=== PATIENT | female | born 1990 | race Caucasian/White ===

== ENCOUNTER 2019-01-17 09:52 | Inpatient (IN) | payer OTHER ==
--- NOTE | 2019-01-16 20:37 | PDGENHP ---
History and Physical - Chief Complaint LEFT HIP PAIN - History of Present Illness 1. ~~Bilateral Femoral excessive~Antetorsion/Valgus 2.~~~Right~Femoroacetabular impingement (AMIRAH) Cam type,~with~resultant labral tear 3. ~~Left Ischiofemoral impingement~ 4. 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 ~[employer], [employer], and yoga. Daysi's~bilateral~hip pain~started Fall 2016, with~no~recalled trauma or injury, and with~no~previous complaints.~Randdoes not have~a known history of hip dysplasia. Presentation today is of~anterior~Right~hip pain and~Left posterior hip pain. ~ The hip~does not~wake her~at night and~does~click and catch on~her. Sitting~can be uncomfortable~for her.~Randdoes~report suffering from lower back pain episodes. Randhas~participated in physical therapy (over a year)~and has~tried other conservative measures including ~Bilateral iliopsoas~injection (100% relief)~and ~left quadratus femoris injection with USG~which gave her 100% relief, ~dry needling and massage therapy.~Diana~has not~received sufficient symptomatic improvement. Randhas~utilized medication for pain management, including NSAID and OTC acetaminophen.~Randhas used medication since the pain began. Randunderstands that~diana~has a hip and pelvis problem which should be researched and wishes to get a better understanding of~her~hip status, followed by an establishment of a treatment strategy, hoping~diana~would be able to get back to~her~well being active life. History: Past medical history:~~ None which is relevant~ Relevant familial history:~Father with OA in hips Past surgical history:~ None Randdenies problematic issues with general anesthesia in the past. I have reviewed, verified and agree with the past medical, surgical, family and social history. Current Medications:~has a current medication list which includes the following prescription(s): albuterol hfa, ibuprofen, magnesium, and turmeric root extract. ALLERGIES:~is allergic to no known drug allergies. Objective: Physical Examination: Randis 5~feet~5~inches tall and weighs~135~Lbs. Randis AAO x3; she~is well- nourished, in NAD. Skin is warm and dry. ~Breathing is non-labored. ~CV with RRR by pulse. Abdomen is soft, NTND. Currently,~she~walks with a~normal~gait.~(VALGUS) Trendelenburg sign is~negative~and proprioception~is normal,~both~sides. She~presents~with mild~signs of joint laxity.~Beightons Score:~2 (knees) Lower spine examination is~negative~for sciatic or femoral nerve irritation with negative~SLR &~femoral stretch tests. Range of motion of the spine is normal~for flexion, extension, and rotations,~with no~associated pain. Strength, Sensation and pulses are~normal -~bilaterally Ankles and knees exams are~normal~and~no~mal-alignment is evident.~ She~has~no leg length discrepancy. Thigh circumference is~symmetric~with no evidence for muscle atrophy~on both~ sides. Hip ROM (degrees): FL ER At 90~hip FL IR At 90~hip FL AB AD EX IR Neutral hip ER Neutral hip R 105 40 50 40 5 10 65 20 L 100 45 50 45 5 10 75 5 Specific hip and pelvis tests: Impingement Test FEROZ Roll Add. Longus R +++ +++ Negative Negative L +++ +++ Negative Negative Glut. Med ITB Posterior Imp R Negative 4+/5 strength Negative 4+/5 strength Negative L Negative 4+/5 strength Negative 4+/5 strength Negative Squeeze test measured~weak Bony Symphysis pubis is~pain free~to touch while concentric activity of the rectus abdominis, does not~produce pain at its insertion. Ilio Psos specific tests are~negative for pain during cycling for~both hips~and no snap. HF has~pain weakness~the left hip. Greater trochanteric burse is~pain free~on both hips. Piriformis tests: FAIR is~negative,~with no~local signs of neuritis related to sciatic nerve. (LEFT PROFOUNDLY WEAK~Gluts) SIJs examination is~normal~with~normal~FEROZ in relation and local tenderness. Hamstrings tests are~negative~functional contraction and negative~tendinopathy both hips. Imaging: Radiology studies which I~have personally reviewed, analyzed and measured are below: XR: AP of the hip and pelvis: Performed in a~good~technique Coccyx to pubic symphysis distance~2.4~cm. Standing~ [place]~Lines are preserved. Minimal~Pathological signs are seen in the Symphysis Pubis.~ Minimal~Pathological signs are seen at the Ischial~tuberosity. ~ Specific measurements show: NSA~ LCE Sourcil~Angle Sharp's angle Lat. Cam Lat. Pincer C.Over~sign Head~Coverage % ATDmm R 149 40 4 42 + - 12-12:30 N N L 149 34 6 41 + - 12-12:30 N N Pos. wall sign ISS NAD ~~Dysplasia Comments R Negative Negative 20.3~mm Negative L Negative Negative 14.7~mm Negative Sclerosis Sup. Lat. OA Cysts Joint Space-WBZ Joint Space-Medial R Negative Negative Negative 3.7~mm 3.2~mm L Negative Negative Negative 3.9~mm 3.4~mm CT / 3D:~ Right hip: Lateral center edge angle: 42 degrees Anterior center edge angle: 64 degrees Equatorial acetabular version angle: 25 degrees Anteverted. Cranial acetabular version angle: 1 degrees Anteverted. Femoral neck shaft angle: 149 degrees Femoral neck version angle: 34 degrees retroverted Femoral shaft torsion angle: 49 degrees~(medial/internal rotation) Left hip: Lateral center edge angle: 31 degrees Anterior center edge angle: 59 degrees Equatorial acetabular version angle: 21 degrees Anteverted. Cranial acetabular version angle: 2 degrees Anteverted. Femoral neck shaft angle: 149 degrees Femoral neck version angle: 44 degrees retroverted Femoral shaft torsion angle: 54 degrees~(medial/internal rotation) 3T Bilateral hip~MRI shows:~good cartilage quality, labral tear, no bone edema or cystic changes Impression and plan: ~ Daysi~is a~28 y.o.~active female~suffering from symptomatic~Bilateral~hip pain due to Femoral antetorsion and~Femoroacetabular impingement (AMIRAH) Cam type,~with ~resultant labral tear causing significant disability to~her~and altering~her~ sport and life activities. Physical examination, imaging, and~her~story correspond with the diagnosis mentioned above. I explained that femoral malrotation is a condition wherein the hip joint has excessive play~and instability due to the orientation of the femur bone or where the femur bone is rotated towards the back of the hip socket resulting in additional impingement pathology. This pathology ranges in severity with treatment options being specific to the nature of the problem. Left untreated, the ante-torsion related instability or the retro-torsion related impingement in the hip joint can cause progressive tearing of the labrum and deterioration of the surface cartilage, ultimately resulting in progressive osteoarthritis of the hip. ~ I explained that femoroacetabular impingement (AMIRAH - Cam type) arises due to a bony or soft tissue conflict between the femur (ball) and acetabulum (socket) caused by an abnormality in the shape of the femoral head and neck. Over time, repetitive impingement can result in damage to the labrum and adjacent surface cartilage within the socket, ultimately giving rise to progressive osteoarthritis of the hip. ~ I explained that although a labral tear can be a source of pain, it is rarely the root of the problem and typically occurs secondary to an underlying abnormality in the shape and mechanics of the hip joint. ~ I reviewed conservative treatment options for Femoral malrotation and AMIRAH including activity modification to avoid positions of impingement or instability , physical therapy, non-steroidal anti-inflammatory medications, and various injections (corticosteroid and PRP) aimed at reducing inflammation in the hip joint or/and preventing dynamic instability and impingement. PRP injections may promote healing and reduce symptoms in certain cases but it will not repair chronically damaged tissue. Although these measures may help to buy time~and reduce current level of symptoms, they are not a definitive solution to the problem given the underlying abnormality in the shape of the hip joint. ~ Patients who have failed conservative management and continue to experience symptoms are candidates for definitive surgical treatment, which may consist of hip arthroscopy alone or in combination with more invasive bony realignment procedures of the femur called derotational femoral osteotomy (DFO), where the femur bone is rotated to the normal anatomical range. ~ Hip arthroscopy typically includes treating the labrum with either repair or reconstruction of the torn labrum; as well as addressing the underlying abnormalities by restoring the normal shape to the hip joint. If the cartilage is damaged a Microfracture surgical procedure may also be necessary to help stimulate the growth of fibrocartilage. If a patient requires a labral reconstruction or a microfracture, the initial rehabilitation from the surgery may take longer, but the longterm results are typically favorable. I reviewed the technical aspects of derotational femoral osteotomy (DFO) including risks, benefits, and expected course of recovery.~Randunderstands that DFO is a minimally invasive inpatient procedure carried out through a small incision on the outer aspects of the hip joint. The femur bone is cut, realigned, and stabilized with a frank. Risks, potential complications, side effects and recovery from surgical procedure were discussed in length.~Daysi~ understands that he/she will undergo hip arthroscopy 1 week prior to the DFO to address damage inside the hip joint to include labral repair and correction of Hip impingement. Daysi~will review the info presented. She will schedule a hip scope with dr Chin and a DFO with us a week later.~ Randwill contact us if she~wishes to pursue further treatment in the future. Randis happy with this plan. I have also supplied~her~with handouts, outlining the expected surgical treatment and rehab involved. I wish~Randall the best, ~~ LORRIE Weller History Information - Allergies/Home Medication List Allergies/Adverse Reactions: sulfite Allergy (Verified 01/06/19 14:17) GI/DIARRHEA Home Medications: Acetaminophen [Tylenol 325mg (*)] 325 mg PO Q6 PRN 01/02/19 [Last Taken Unknown] Albuterol [Proventil Inhaler HFA (*)] 1 - 2 puffs IH Q4H PRN 01/02/19 [Last Taken Unknown] Cetirizine [ZyrTEC 10 mg (*)] 10 mg PO DAILY PRN 01/02/19 [Last Taken Unknown] Herbals/Supplements -Info Only 1 ea PO DAILY 01/02/19 [Last Taken Unknown] Ibuprofen [Motrin (*)] 200 mg PO Q6HRS PRN 01/02/19 [Last Taken Unknown] [place]-3 Fatty Acids [Fish Oil 1000 mg (*)] 1,000 mg PO DAILY 01/02/19 [Last Taken Unknown] I have personally reviewed and updated: medical history - Social History Smoking Status: Never smoked Review of Systems Review of Systems: Physical Exam Physical Exam:
[2019-01-17] MEDS ORDERED: PREGABALIN 150 MG CAP PO ONE (12:17)
[2019-01-17] MEDS ORDERED: TRANEXAMIC ACID 1,000 MG in NS 100 ML IV ONE (12:17)
[2019-01-17] MEDS ORDERED: SCOPOLAMINE HYDROBROMIDE 1 MG/3 DAYS PATCH TD ONE (12:17)
[2019-01-17] MEDS ORDERED: ACETAMINOPHEN 500 MG TAB PO ONE (12:17)
[2019-01-17] MEDS ORDERED: ceFAZolin 2 GM/DEXTROSE 100 ML IV ONE (12:17)
[2019-01-17] MEDS ORDERED: LR 1,000 ML IV ONE (12:20)
[2019-01-17 13:06] LABS: PLATELET COUNT 311 10^3/uL (150-400)
[2019-01-17] MEDS ORDERED: BUPIVACAINE/EPI 0.25% 30 ML SDV ONE (13:27)
[2019-01-17] MEDS ORDERED: MIDAZOLAM 2 MG/2 ML VIAL IVP ONE (13:47)
--- NOTE | 2019-01-17 13:47 | PDANEPAE ---
ANE History of Present Illness L DFO ANE Past Medical History - Cardiovascular History Hx Hypertension: No Hx Arrhythmias: No Hx Chest Pain: No Hx Coronary Artery / Peripheral Vascular Disease: No Hx CHF / Valvular Disease: No Hx Palpitations: No - Pulmonary History Hx COPD: No Hx Asthma/Reactive Airway Disease: Yes Hx Recent Upper Respiratory Infection: No Hx Oxygen in Use at Home: No Hx Sleep Apnea: No Sleep Apnea Screening Result - Last Documented: Negative Pulmonary History Comment: EXERCISE INDUCED ASTHMA - Neurologic History Hx Cerebrovascular Accident: No Hx Seizures: No Hx Dementia: No - Endocrine History Hx Diabetes: No - Renal History Hx Renal Disorders: No - Liver History Hx Hepatic Disorders: No - Neurological & Psychiatric Hx Hx Neurological and Psychiatric Disorders: No - Cancer History Hx Cancer: No - Congenital Disorder History Hx Congenital Disorders: Yes 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 - GI History Hx Gastrointestinal Disorders: No - Other Health History Other Health History: EXCEZMA FACIAL - Chronic Pain History Chronic Pain: Yes (SHAYNE HIPS) - Surgical History Prior Surgeries: LT HIP SCOPE IN [place] 01/05/19 ANE Review of Systems Review of systems is: negative Review of Systems: - Exercise capacity METS (RN): 5 METS ANE Patient History - Allergies Allergies/Adverse Reactions: sulfite Allergy (Verified 01/06/19 14:17) GI/DIARRHEA - Home Medications Home medications: home medication list seen and reviewed Home Medications: Acetaminophen [Tylenol 325mg (*)] 325 mg PO Q6 PRN 01/02/19 [Last Taken 01/14/19 ] Albuterol [Proventil Inhaler HFA (*)] 1 - 2 puffs IH Q4H PRN 01/02/19 [Last Taken 07/01/18] Cetirizine [ZyrTEC 10 mg (*)] 10 mg PO DAILY PRN 01/02/19 [Last Taken 01/10/19] Herbals/Supplements -Info Only 1 ea PO DAILY 01/02/19 [Last Taken 01/14/19] Ibuprofen [Motrin (*)] 200 mg PO Q6HRS PRN 01/02/19 [Last Taken 01/01/19] [place]-3 Fatty Acids [Fish Oil 1000 mg (*)] 1,000 mg PO DAILY 01/02/19 [Last Taken 01/01/19] - NPO status NPO Since - Liquids (Date): 01/17/19 NPO Since - Liquids (Time): 10:30 NPO Since - Solids (Date): 01/16/19 NPO Since - Solids (Time): 22:15 - Anes Hx Anes Hx: post operative nausea - Smoking Hx Smoking Status: Never smoked - Family Anes Hx Family Anes Hx: none ANE Labs/Vital Signs - Labs Result Diagrams: 01/17/19 12:17 - Vital Signs Vital Signs: reviewed preoperatively; see RN documention for details Blood Pressure: 114/81 Heart Rate: 86 Respiratory Rate: 20 O2 Sat (%): 99 Height: 166.37 cm Weight: 63.957 kg ANE Physical Exam - Airway Neck exam: FROM Mallampati Score: Class 1 Mouth exam: normal dental/mouth exam - Pulmonary Pulmonary: no respiratory distress - Cardiovascular Cardiovascular: regular rate and rhythym - ASA Status ASA Status: II ANE Anesthesia Plan Anesthesia Plan: general endotracheal anesthesia, spinal (spinal for post op pain) Regional Anesthesia: POPC/PSR
[2019-01-17] MEDS ORDERED: LIDOCAINE 2% 100 MG/5 ML SYR ONE (15:12)
[2019-01-17] MEDS ORDERED: DEXAMETHASONE 4 MG/ML VIAL ONE (15:12)
[2019-01-17] MEDS ORDERED: ONDANSETRON 4 MG/2 ML VIAL ONE (15:12)
[2019-01-17] MEDS ORDERED: ROCURONIUM 50 MG/5 ML VIAL ONE (15:12)
[2019-01-17] MEDS ORDERED: PROPOFOL/EMULSION 500 MG/50 ML BOTTLE IV ONE (15:13)
[2019-01-17] MEDS ORDERED: fentaNYL 100 MCG/2 ML INJ ONE (15:14)
[2019-01-17] MEDS ORDERED: morphINE PF 5 MG/10 ML INJ ONE (15:15)
[2019-01-17] MEDS ORDERED: ALBUTEROL 3 ML DEYVIAL IH PRN (15:58)
[2019-01-17] MEDS ORDERED: NALOXONE HCL 0.4 MG/ML INJ IVP PRN ×3 (15:58→20:07)
[2019-01-17] MEDS ORDERED: MEPERIDINE 25 MG/0.5 ML AMP IVP PRN (15:58)
[2019-01-17] MEDS ORDERED: fentaNYL 100 MCG/2 ML INJ IVP PRN (15:58)
[2019-01-17] MEDS ORDERED: HYDROmorphONE/DILAUDID 1 MG/ML INJ IVP PRN (15:58)
[2019-01-17] MEDS ORDERED: oxyCODONE IR 5 MG TAB PO PRN (15:58)
[2019-01-17] MEDS ORDERED: HYDROCODONE/APAP 5/325 TAB PO PRN (15:58)
[2019-01-17] MEDS ORDERED: PROMETHAZINE HCL 25 MG/ML INJ IVP PRN (15:58)
--- NOTE | 2019-01-17 15:58 | POSTANESTH ---
Post Anesthetic Evaluation Cardiovascular Status: Normal, Stable, Similar to Pre-Op Cond Respiratory Status: Normal, Stable, Similar to Pre-op Cond. Level of Consciousness/Mental Status: Can Participate in Eval, Mildly Sleepy, Arousable Pain Control: Adequate, Prn Tx Ordered Nausea/Vomiting Control: Adequate, Prn Tx Ordered Complications Possibly Related to Anesthesia: None Noted
[2019-01-17] MEDS ORDERED: LACTULOSE 20 GM/30 ML UDCUP PO PRN (16:37)
[2019-01-17] MEDS ORDERED: ONDANSETRON 4 MG/2 ML VIAL IVP PRN ×2 (16:37→20:07)
[2019-01-17] MEDS ORDERED: BISACODYL 10 MG SUPP PR PRN (16:37)
[2019-01-17] MEDS ORDERED: ACETAMINOPHEN 325 MG TAB PO PRN (16:37)
[2019-01-17] MEDS ORDERED: MAGNESIUM HYDROXIDE 30 ML UDCUP PO PRN (16:37)
[2019-01-17] MEDS ORDERED: diphenhydrAMINE 25 MG CAP PO PRN (16:40)
[2019-01-17] MEDS ORDERED: HYDROmorphONE/DILAUDID 6 MG/30 ML PCA IV PRN (16:40)
[2019-01-17] MEDS ORDERED: ALBUTEROL 60 PUFFS/8 GM MDI IH PRN (16:42)
[2019-01-17] MEDS ORDERED: CETIRIZINE 10 MG TAB PO PRN (16:42)
[2019-01-17] MEDS ORDERED: PROPOFOL 200 MG/20 ML VIAL ONE ×2 (17:45→18:52)
[2019-01-17] MEDS: oxyCODONE IR 5 MG TAB PO SCH ×2 (22:23→22:31)
[2019-01-17] MEDS: NAPROXEN SODIUM 220 MG TAB PO SCH (22:30)
[2019-01-17] MEDS: SENNOSIDES/DOCUSATE SODIUM TAB PO SCH (22:31)
[2019-01-18] MEDS: NS 1,000 ML IV SCH (00:01)
[2019-01-18] MEDS: oxyCODONE IR 5 MG TAB PO PRN ×6 (02:01→23:56)
[2019-01-18] MEDS ORDERED: NS 500 ML IV ONE (04:50)
--- NOTE | 2019-01-18 07:57 | PDHOSCONS ---
History and Physical - Chief Complaint Hypotension, medical management - History of Present Illness Source-patient provides history appears reliable. EMR was reviewed. Consult requested by Dr. Gonzales. Reason for consultation - assistance with medical management, hypotension HPI-is a pleasant 28-year-old female with no significant past medical history POD#1 s/p DFO of left hip with Dr. Gonzales. Notified by RN regarding a.m. Blood pressures SBP in the 80s. Patient denies any symptoms of palpitations, lightheadedness, chest pain or shortness of breath. She does feel fatigued and sleepy but otherwise reports that her pain is quite well controlled. She has oxycodone and a SIX SIGMA BLACK BELT ENGINEER which she states she has not required in the last several hours. Patient is unsure if she has a history of low blood pressures. She reports that her father has a history of low normal blood pressures. Patient received 500 cc bolus normal saline shortly after a and blood pressure without significant change. She has not had any tachycardia. Review of her chart reveals that her blood pressures intraoperatively SBP is 80s-100s. Her preoperative blood pressures are slightly elevated but still low normal. Again patient is asymptomatic. History Information - Allergies/Home Medication List Allergies/Adverse Reactions: sulfite Allergy (Verified 01/06/19 14:17) GI/DIARRHEA Home Medications: Acetaminophen [Tylenol 325mg (*)] 325 mg PO Q6 PRN 01/02/19 [Last Taken 01/14/19 ] Albuterol [Proventil Inhaler HFA (*)] 1 - 2 puffs IH Q4H PRN 01/02/19 [Last Taken 07/01/18] Cetirizine [ZyrTEC 10 mg (*)] 10 mg PO DAILY PRN 01/02/19 [Last Taken 01/10/19] Herbals/Supplements -Info Only 1 ea PO DAILY 01/02/19 [Last Taken 01/14/19] Ibuprofen [Motrin (*)] 200 mg PO Q6HRS PRN 01/02/19 [Last Taken 01/01/19] [place]-3 Fatty Acids [Fish Oil 1000 mg (*)] 1,000 mg PO DAILY 01/02/19 [Last Taken 01/01/19] I have personally reviewed and updated: family history, medical history, social history, surgical history - Past Medical History Additional medical history: Denies chronic medical issues and reports she is very active and healthy. - Surgical History Additional surgical history: Left hip arthroscopy for labrum repair. Left hip DFO - Family History Additional family history: Father with history baseline hypotension/low normal BPs - Social History Smoking Status: Never smoked Alcohol Use: None Drug Use: None Review of Systems Review of Systems: ROS: 10pt was reviewed & negative except for what was stated in HPI & below Physical Exam Physical Exam: Temp Pulse Resp BP Pulse Ox 36.9 C 55 L 16 112/68 95 01/18/19 07:39 01/18/19 07:39 01/18/19 07:39 01/18/19 07:39 01/18/19 07:39 O2 (L/minute) 2 Constitutional: no apparent distress, not in pain, other (NAD. Patient resting quietly in bed. She is fatigued.) Eyes: PERRL (Slightly decreased reactivity light bilaterally but symmetric), anicteric sclera, EOMI, No scleral injection Ears, Nose, Mouth, Throat: moist mucous membranes, other (No nasal discharge.), No poor dentition Cardiovascular: regular rate and rhythym, no murmur, rub, or gallop, pulses symmetric bilaterally, No systolic murmur, No edema Peripheral Pulses: 2+: dorsalis-pedis (R), dorsalis-pedis (L) Respiratory: no respiratory distress, no rales or rhonchi, clear to auscultation , No inspiratory crackles Gastrointestinal: normoactive bowel sounds, soft, non-tender abdomen, no palpable masses, No distension Genitourinary: no bladder tenderness, No aguilar in urethra Skin: warm, normal color, no rashes or abrasions, other (General pallor unchanged per RN) Musculoskeletal: full muscle strength (exam left lower extremity deferred), No generalized weakness Neurologic: AAOx3, sensation intact bilaterally, No facial droop Psychiatric: interacting appropriately, not anxious, not encephalopathic, thought process linear, No suicidal ideation Lab Data & Imaging Review 01/18/19 04:53 01/18/19 04:53 WBC 11.84 10^3/uL (3.80-9.50) H 01/18/19 04:53 RBC 3.47 10^6/uL (4.18-5.33) L 01/18/19 04:53 Hgb 11.0 g/dL (12.6-16.3) L 01/18/19 04:53 Hct 31.7 % (38.0-47.0) L 01/18/19 04:53 MCV 91.4 fL (81.5-99.8) 01/18/19 04:53 MCH 31.7 pg (27.9-34.1) 01/18/19 04:53 MCHC 34.7 g/dL (32.4-36.7) 01/18/19 04:53 RDW 12.0 % (11.5-15.2) 01/18/19 04:53 Plt Count 249 10^3/uL (150-400) 01/18/19 04:53 MPV 9.1 fL (8.7-11.7) 01/17/19 12:17 Neut % (Auto) 60.3 % (39.3-74.2) 01/17/19 12:17 Lymph % (Auto) 28.5 % (15.0-45.0) 01/17/19 12:17 Giles % (Auto) 9.0 % (4.5-13.0) 01/17/19 12:17 Eos % (Auto) 1.2 % (0.6-7.6) 01/17/19 12:17 Baso % (Auto) 0.7 % (0.3-1.7) 01/17/19 12:17 Nucleat RBC Rel Count 0.0 % (0.0-0.2) 01/17/19 12:17 Absolute Neuts (auto) 4.41 10^3/uL (1.70-6.50) 01/17/19 12:17 Absolute Lymphs (auto) 2.08 10^3/uL (1.00-3.00) 01/17/19 12:17 Absolute Monos (auto) 0.66 10^3/uL (0.30-0.80) 01/17/19 12:17 Absolute Eos (auto) 0.09 10^3/uL (0.03-0.40) 01/17/19 12:17 Absolute Basos (auto) 0.05 10^3/uL (0.02-0.10) 01/17/19 12:17 Absolute Nucleated RBC 0.00 10^3/uL (0-0.01) 01/17/19 12:17 Immature Gran % 0.3 % (0.0-1.1) 01/17/19 12:17 Immature Gran # 0.02 10^3/uL (0.00-0.10) 01/17/19 12:17 Sodium 132 mEq/L (135-145) L 01/18/19 04:53 Potassium 4.6 mEq/L (3.5-5.2) 01/18/19 04:53 Chloride 103 mEq/L (97-110) 01/18/19 04:53 Carbon Dioxide 23 mEq/l (22-31) 01/18/19 04:53 Anion Gap 6 mEq/L (6-14) 01/18/19 04:53 BUN 13 mg/dL (7-23) 01/18/19 04:53 Creatinine 0.8 mg/dL (0.6-1.0) 01/18/19 04:53 Estimated GFR > 60 01/18/19 04:53 Glucose 100 mg/dL (70-100) 01/18/19 04:53 Calcium 8.5 mg/dL (8.5-10.4) 01/18/19 04:53 Assessment & Plan Assessment: Pleasant 28 year old female with no significant past medical history POD # 1 s/ p L DFO with Dr. Gonzales #hypotension - likely multifactorial including pain medication, patient low normal baseline. She appears well hydrated at this point and has actually drank nearly 3 L of water. She is completely asymptomatic at this point. I have advised her to notify the nurse if she should develop any lightheadedness, chest pain or shortness of breath. H&H is slightly decreased from admission. Plan to repeat later this afternoon. But patient is not tachycardic. # acute blood loss anemia - mildly decreased. Repeat H&H as noted above. # postop pain - patient with the SIX SIGMA BLACK BELT ENGINEER and Oxy IR p.r.n.. Currently pain is well controlled. # hyponatremia - possibly dilutional as patient has been drinking quite a bit of water. She is receiving a supplementation in addition. Monitor a.m. BMP. FEN - continue IV fluid supplementation at this time. Advance diet as tolerated. PPX - SCDs on. Anticoagulation as per primary team Thank you for this consultation. We will continue to follow along with you.
[2019-01-18] MEDS: NAPROXEN SODIUM 220 MG TAB PO SCH ×3 (09:09→22:21)
[2019-01-18] MEDS: SENNOSIDES/DOCUSATE SODIUM TAB PO SCH ×2 (09:10→19:54)
[2019-01-18] MEDS: PANTOPRAZOLE SODIUM 40 MG TAB PO SCH (09:10)
--- NOTE | 2019-01-18 10:54 | PDMN ---
Medical Necessity Medical necessity: [facility] Musculoskeletal Surgery or Procedure, 28 yo s/p L femoral osteotomy derotation, [facility] only
--- NOTE | 2019-01-18 12:00 | HOSPPROG ---
Hospitalist Progress Note Assessment/Plan: Pleasant 28 year old female with no significant past medical history POD # 1 s/ p L DFO with Dr. Gonzales #hypotension - likely multi-factorial: blood loss, anesthesia, opiates. BP improved this am after IVFs and increased po intake, has low normal at baseline -follow, prn fluid bolus # acute blood loss anemia - no indication for transfusion, h&h stable # postop pain - MEDICAL CHEMIST and Oxy IR p.r.n. per surgery service -can probably dc Aviation Safety Technician and transition to po # hyponatremia - mild, follow # aguilar will d/c today PPX - SCDs on. Anticoagulation as per primary team Subjective: Pt feels fine. No dizziness, CP or SOB. Pain fairly well controlled, not using medical billing coordinator much. Good uop. Objective: Vital Signs Temp Pulse Resp BP Pulse Ox 36.7 C 81 16 104/62 91 L 01/18/19 10:00 01/18/19 10:00 01/18/19 10:00 01/18/19 10:00 01/18/19 10:00 Laboratory Results 01/18/19 11:14 01/18/19 04:53 01/17/19 01/18/19 01/19/19 05:59 05:59 05:59 Intake Total 5200 1450 Output Total 2475 1450 Balance 2725 0 - Physical Exam Constitutional: no apparent distress Eyes: PERRL Ears, Nose, Mouth, Throat: moist mucous membranes Cardiovascular: regular rate and rhythym Respiratory: no respiratory distress, clear to auscultation Gastrointestinal: normoactive bowel sounds, soft, non-tender abdomen Skin: warm Musculoskeletal: no muscle tenderness Neurologic: AAOx3 Psychiatric: interacting appropriately ICD10 Worksheet Patient Problems: Problems Problem Status Onset Hip pain Acute - ICD10 Problem Qualifiers (1) Hip pain
--- NOTE | 2019-01-18 16:07 | PDPAINCON ---
Pain Management Consultation Patient referred by : Janet - Subjective Pain is: under control Activity: able to ambulate (with walker), out of bed with assistance - Objective Technique: spinal opioid Sensory and motor exam: block has resolved, no apparent ill effects Vital signs: stable - Assessment/Plan Assessment/Plan: other (pt doing well pod 1 s/p dfo. no backache, no headache. pleased with anesthetic care)
--- NOTE | 2019-01-18 16:40 | ASMTCMCOM ---
CM Note CM Note Notes: Pt had planned surgery for dysplasia, resides with spouse. PT rec HHC, OT eval pending. CM to follow pt progress and see if MD wants C. D/c plan of care: Pt likely independent Date Signed: 01/18/2019 04:40 PM Electronically Signed By:THA Madden
--- NOTE | 2019-01-18 21:50 | SOAPPROG ---
SOAP Progress Note Assessment/Plan: Assessment: 28 yo F POD#1 s/p L DFO, doing well post-op Plan: Transition LOCATION ANALYST to PO pain meds as able PT/OT, NWB LLE SCDs for DVT ppx XR POD #3 Goal for d/c Wednesday01/18/19 21:47 Subjective: Pt reports some pain after spinal wore off, but largely controlled on LOCATION ANALYST/PO pain meds. No CP/SOB/N/V. Objective: Vital Signs Temp Pulse Resp BP Pulse Ox 36.4 C 67 16 80/60 L 91 L 01/18/19 21:26 01/18/19 21:26 01/18/19 21:26 01/18/19 21:26 01/18/19 21:26 Laboratory Results 01/18/19 11:14 01/18/19 04:53 01/17/19 01/18/19 01/19/19 05:59 05:59 05:59 Intake Total 5200 1950 Output Total 2475 3600 Balance 2725 -1650 Gen: NAD LLE: Dressings c/d/i Distally 5/5 TA, GSC, EHL SILT throughout foot ICD10 Worksheet Patient Problems: Problems Problem Status Onset Hip pain Acute
[2019-01-18] MEDS: ONDANSETRON DISINTEGRATING 4 MG TAB PO PRN (22:21)
[2019-01-18] MEDS: DIAZEPAM 2 MG TAB PO PRN (22:21)
[2019-01-19] MEDS: oxyCODONE IR 5 MG TAB PO PRN ×5 (04:15→20:42)
[2019-01-19] MEDS: NS 1,000 ML IV SCH (04:16)
[2019-01-19] MEDS ORDERED: NS 500 ML IV ONE (04:53)
[2019-01-19] MEDS: NAPROXEN SODIUM 220 MG TAB PO SCH ×3 (08:12→22:46)
[2019-01-19] MEDS: PANTOPRAZOLE SODIUM 40 MG TAB PO SCH (08:13)
[2019-01-19] MEDS: SENNOSIDES/DOCUSATE SODIUM TAB PO SCH ×2 (08:13→20:43)
[2019-01-19] MEDS: POLYETHYLENE GLYCOL 3350 17 GM PKT PO PRN (15:34)
[2019-01-19] MEDS: ASPIRIN EC 81 MG TAB PO SCH (16:00)
--- NOTE | 2019-01-19 17:58 | HOSPPROG ---
Hospitalist Progress Note Assessment/Plan: Pleasant 28 year old female with no significant past medical history POD #2 s/p L DFO with Dr. Gonzales # hypotension - likely multi-factorial: blood loss, anesthesia, opiates. Resolved. 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 No more hypotension. She is ambulating independently with assist devices. No CP or SOB. 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 No complaints. Planning to dc home tomorrow. Objective: Vital Signs Temp Pulse Resp BP Pulse Ox 36.7 C 66 16 98/63 L 98 01/19/19 15:15 01/19/19 15:15 01/19/19 15:15 01/19/19 15:15 01/19/19 15:15 Laboratory Results 01/18/19 11:14 01/18/19 04:53 01/18/19 01/19/19 01/20/19 05:59 05:59 05:59 Intake Total 5200 2350 1500 Output Total 2475 5800 2500 Balance 2725 -3450 -1000 - Physical Exam Constitutional: no apparent distress Eyes: PERRL Ears, Nose, Mouth, Throat: moist mucous membranes Cardiovascular: regular rate and rhythym Respiratory: no respiratory distress, clear to auscultation Gastrointestinal: normoactive bowel sounds, soft, non-tender abdomen Skin: warm Musculoskeletal: full muscle strength Neurologic: AAOx3 Psychiatric: interacting appropriately ICD10 Worksheet Patient Problems: Problems Problem Status Onset Hip pain Acute - ICD10 Problem Qualifiers (1) Hip pain
--- NOTE | 2019-01-19 21:01 | SOAPPROG ---
[facility] Progress Note Assessment/Plan: Assessment: 1 day post op LEFT DFO Plan: Xray tomorrow DC home tomorrow 01/19/19 20:58 Subjective: Daysi is doing well with evening. Her pain is well managed with Oxycodone alone. She has been up with PT/OT. She denies cp, sob or nausea. Objective: Vital Signs Temp Pulse Resp BP Pulse Ox 36.7 C 78 16 110/66 98 01/19/19 19:44 01/19/19 19:44 01/19/19 19:44 01/19/19 19:44 01/19/19 19:44 Laboratory Results 01/18/19 11:14 01/18/19 04:53 01/18/19 01/19/19 01/20/19 05:59 05:59 05:59 Intake Total 5200 2350 1500 Output Total 2475 5800 4000 Balance 2725 -0880 -2500 Left hip/leg: dressings clean dry in tact some edema and ecchymosis full sensation in leg NVI distally full ROM of foot and ankle - Pending Discharge Pending Discharge Within 24 Hours: Yes Pending Discharge Date: 01/20/19 Pending Discharge Time: 11:00 ICD10 Worksheet Patient Problems: Problems Problem Status Onset Hip pain Acute
[2019-01-19] MEDS: DIAZEPAM 2 MG TAB PO PRN (22:46)
[2019-01-20] MEDS: oxyCODONE IR 5 MG TAB PO PRN ×4 (00:56→15:13)
[2019-01-20] MEDS: POLYETHYLENE GLYCOL 3350 17 GM PKT PO PRN ×2 (05:11→08:27)
[2019-01-20] MEDS: PANTOPRAZOLE SODIUM 40 MG TAB PO SCH (08:22)
[2019-01-20] MEDS: ASPIRIN EC 81 MG TAB PO SCH (08:22)
[2019-01-20] MEDS: NAPROXEN SODIUM 220 MG TAB PO SCH (08:22)
[2019-01-20] MEDS: SENNOSIDES/DOCUSATE SODIUM TAB PO SCH (08:23)
--- NOTE | 2019-01-20 09:08 | HOSPPROG ---
Hospitalist Progress Note Assessment/Plan: Pleasant 28 year old female with no significant past medical history POD #3 s/p L DFO with Dr. Gonzales # Hypotension - likely multi-factorial: blood loss, anesthesia, opiates. Resolved. 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 #Hyponatremia - mild Subjective: pain controlled Objective: Vital Signs Temp Pulse Resp BP Pulse Ox 36.5 C 93 16 102/69 96 01/20/19 07:27 01/20/19 07:27 01/20/19 07:27 01/20/19 07:27 01/20/19 07:27 Laboratory Results 01/18/19 11:14 01/18/19 04:53 01/19/19 01/20/19 01/21/19 05:59 05:59 05:59 Intake Total 2350 2500 Output Total 5800 4000 Balance -3450 -1500 - Time Spent With Patient Time Spent with Patient: greater than 35 minutes Time Spent with Patient: Greater than 35 minutes spent on this patients care, greater than 50% of time spent counseling, educating, and coordinating care regarding the above mentioned plan. - Physical Exam Constitutional: no apparent distress Eyes: PERRL Ears, Nose, Mouth, Throat: moist mucous membranes Cardiovascular: regular rate and rhythym Respiratory: no respiratory distress Gastrointestinal: normoactive bowel sounds Musculoskeletal: other (surgical incision, CDI) Neurologic: AAOx3, CN II-XII Intact ICD10 Worksheet Patient Problems: Problems Problem Status Onset Hip pain Acute
[2019-01-20] MEDS: ONDANSETRON DISINTEGRATING 4 MG TAB PO PRN ×2 (09:15→15:13)
[2019-01-20 11:28] VITALS: BP 99/70
--- NOTE | 2019-01-20 14:38 | ASMTCMCOM ---
CM Note CM Note Notes: CM discussed with RN, there is no indication the MD is referring for Home Health. Patient to discharge home independent, CM available to follow if any further CM/discharge needs arise. Date Signed: 01/20/2019 02:37 PM Electronically Signed By:Natividad Shabazz
== END 2019-01-20 15:40 | disposition home or self-care (01) | DRG 481 ==
LOC: F3N 11:56
PROVIDERS: ADMIT Orthopaedic Surgery Sports Medicine; ATTEND Orthopaedic Surgery Sports Medicine
PROC: 0QS706Z Reposition Left Upper Femur with Intramedullary Internal Fixation Device, Open Approach (ICD-10-PCS; principal; 2019-01-17 13:30)
DX: Q65.89 Other specified congenital deformities of hip (principal); M76.892 Other specified enthesopathies of left lower limb, excluding foot; I95.81 Postprocedural hypotension; E87.1 Hypo-osmolality and hyponatremia
CPT/HCPCS: 97116-GP; 97162-GP; 97165-GO; 97530-GO; 97530-GP; 97535-GO; C1713; J0690; J1100; J1170; J2001; J2250; J2274; J2405; J2704; J3010